=== PATIENT | female | born 1935 | race Caucasian/White ===

== ENCOUNTER 2017-10-08 22:00 | Observation (INO) | payer MEDICARE, OTHER ==
--- NOTE | 2017-10-08 22:33 | EDM.PDOC ---
ED HPI GENERAL MEDICAL PROBLEM - General Chief Complaint: Gastrointestinal Problem Stated Complaint: [facility] Time Seen by Provider: 10/08/17 22:05 Source of Information: Reports: Patient History Limitations: Reports: No Limitations - History of Present Illness INITIAL COMMENTS - FREE TEXT/NARRATIVE: This is an 82-year-old female. Tonight for supper she had a roast beef sandwich. As she was eating the sandwich she felt like she got some of it stuck in her esophagus and was no longer able to finish her sandwich. Normally when this happens she will vomit up the food and she'll be just fine. Tonight however she was not able to vomit up the food she continues to have esophageal spasms and regurgitating her sputum. She says she's never had it this bad before and she comes to the ER for evaluation. She denies any other acute changes or recent illnesses. Throat Pain Score (Numeric/FACES): 4 - Related Data Allergies Allergy/AdvReac Type Severity Reaction Status Date / Time lisinopril Allergy Swelling Verified 01/26/16 04:23 Home Meds: Home Meds Linagliptin [Tradjenta] 5 mg PO DAILY 01/26/16 [History] Oxybutynin [Oxybutynin ER] 5 mg PO DAILY 01/26/16 [History] Cranberry Fruit Concentrate [Azo Cranberry] 500 mg PO DAILY 10/08/17 [History] Hydrochlorothiazide 25 mg PO DAILY 10/08/17 [History] Oxybutynin 5 mg PO DAILY 10/08/17 [History] PARoxetine [Paxil] 10 mg PO DAILY 10/08/17 [History] Zolpidem Tartrate 5 mg PO BEDTIME PRN 10/08/17 [History] fentaNYL [Duragesic] 50 mcg TOP Q72H 10/08/17 [History] Past Medical History HEENT History: Reports: Cataract, Impaired Vision Other HEENT History: cataract sx both eyes 2009; wears glasses Cardiovascular History: Reports: Aneurysm, Hypertension Other Cardiovascular History: sx for aneurysm 2014 Gastrointestinal History: Reports: Chronic Constipation Genitourinary History: Reports: Other (See Below) Musculoskeletal History: Reports: Back Pain, Chronic Other Musculoskeletal History: severe sciatica bilateral Endocrine/Metabolic History: Reports: Diabetes, Type II Oncologic (Cancer) History: Reports: Breast Other Oncologic History: lumpectomy left breast 2003 - Past Surgical History GI Surgical History: Reports: Appendectomy, Cholecystectomy Other GI Surgeries/Procedures: appy many years ago; karen 2013 Female Surgical History: Reports: Hysterectomy Other Female Surgeries/Procedures: hysterectomy 1970 Other Neurological Surgeries/Procedures: requiring surgery for pinched sciatia nerve; scheduled 02/05/16 Oncologic Surgical History: Reports: Lumpectomy Social & Family History - Family History Family Medical History: Noncontributory Cardiac: Reports: Hypertension Musculoskeletal: Reports: Arthritis Endocrine/Metabolic: Reports: Diabetes, Type I Oncologic: Reports: Breast, Other (See Below) Other Oncologic Family History: uncle with throat cancer - Tobacco Use Smoking Status *Q: Never Smoker Years of Tobacco use: 20 Packs/Tins Daily: 0.5 Used Tobacco, but Quit: Yes Month/Year Tobacco Last Used: 06/1993 Second Hand Smoke Exposure: No - Caffeine Use Caffeine Use: Reports: Coffee - Recreational Drug Use Recreational Drug Use: No ED ROS GENERAL - Review of Systems Review Of Systems: See Below Constitutional: Reports: No Symptoms HEENT: Reports: Other (As per history of present illness) Respiratory: Reports: Shortness of Breath, Cough Cardiovascular: Reports: No Symptoms Endocrine: Reports: No Symptoms GI/Abdominal: Reports: Other (As per history of present illness) : Reports: No Symptoms Musculoskeletal: Reports: Other (Please see her past medical history) Skin: Reports: No Symptoms Neurological: Reports: Other (Hx of lumbar pinched nerve or sciatica) Psychiatric: Reports: No Symptoms Hematologic/Lymphatic: Reports: No Symptoms ED EXAM, GI/ABD - Physical Exam Exam: See Below Exam Limited By: No Limitations General Appearance: Alert, WD/WN, Mild Distress Eyes: Bilateral: Normal Appearance Ears: Normal External Exam Nose: Normal Inspection Throat/Mouth: Normal Inspection, Normal Lips, Normal Voice, No Airway Compromise , Other (Teeth are in fair repair) Head: Normocephalic Neck: Normal Inspection, Supple, Non-Tender Respiratory/Chest: No Respiratory Distress, Lungs Clear, Normal Breath Sounds Cardiovascular: Regular Rate, Rhythm, No Murmur GI/Abdominal Exam: Soft, Non-Tender, Other (Patient will regurgitate or sputum periodically. There are occasional food flecks in the sputum.) Back Exam: Decreased Range of Motion Extremities: Normal Inspection, Normal Range of Motion, No Pedal Edema Neurological: Alert, Oriented Psychiatric: Anxious Skin Exam: Warm, Dry Course - Vital Signs Last Recorded V/S: Last Vital Signs Temp 97.2 F 10/08/17 22:08 Pulse 71 10/08/17 22:08 Resp 20 10/08/17 22:08 BP 167/115 H 10/08/17 22:08 Pulse Ox 99 10/08/17 22:08 - Orders/Labs/Meds Orders: Active Orders 24 hr Category Date Time Status Patient Status [ADT] Routine ADT 10/09/17 00:04 Ordered Meds: Medications Discontinued Medications Generic Name Dose Route Start Last Admin Trade Name Elizabeth PRN Reason Stop Dose Admin Glucagon 1 mg 10/08/17 22:40 10/08/17 22:46 Glucagen IVPUSH 10/08/17 22:41 1 mg ONETIME ONE Administration - Re-Assessments/Exams Free Text/Narrative Re-Assessment/Exam: 10/08/17 23:37 Awaiting almost an hour and encouraged her to sip fluids she is still not able to swallow and keeps regurgitating her sputum. I spoke to Dr. Hand who will see the patient in the ER for further evaluation and treatment. Spoke to the patient about Dr. Hand coming to the ER to scope her and get rid of the foreign body in esophagus. 10/08/17 23:39 Dr. Hand will see the patient in the ER for further evaluation and treatment. Departure - Departure Time of Disposition: 00:06 Disposition: DC/Tfer to [facility] Condition: Fair Clinical Impression: Esophageal obstruction due to food impaction - Discharge Information ED Communication - ED Communication Date/Time Date: 10/08/17 Time Called: 23:39 - Discussed Case With (1) Discussed Case With (1): Admitting Provider Person/s Notified (1): Lucio Hand (He will take the patient for upper endoscopy) - My Orders Last 24 Hours: My Active Orders 10/09/17 00:04 Patient Status [ADT] Routine - Assessment/Plan Last 24 Hours: My Active Orders 10/09/17 00:04 Patient Status [ADT] Routine
[2017-10-08] MEDS ORDERED: Glucagon,Human Recombinant 1 MG Vial IVPUSH ONE (22:40)
--- NOTE | 2017-10-09 00:13 | PCM.PREANE ---
Preanesthetic Assessment - Anesthesia/Transfusion/Family Hx Anesthesia History: Prior Anesthesia Without Reaction Family History of Anesthesia Reaction: No Transfusion History: No Prior Transfusion(s) - Review of Systems General: Fatigue Pulmonary: No Symptoms Cardiovascular: No Symptoms Gastrointestinal: Abdominal Pain, Difficulty Swallowing, Nausea, Vomiting Neurological: Paresthesia (legs), Tingling (legs), Difficulty Walking Other: Reports: Diabetes, Throat Pain - Physical Assessment NPO Status Date: 10/08/17 NPO Status Time: 18:30 Pulse: 71 O2 Sat by Pulse Oximetry: 99 Respiratory Rate: 20 Blood Pressure: 167/115 Temperature: 36.2 C Vital Signs: Last Vital Signs Temp 36.2 C 10/08/17 22:08 Pulse 71 10/08/17 22:08 Resp 20 10/08/17 22:08 BP 167/115 H 10/08/17 22:08 Pulse Ox 99 10/08/17 22:08 Height: 1.65 m Weight: 77.111 kg ASA Class: 2E Mental Status: Alert & Oriented x3 Airway Class: Mallampati = 2 Dentition: Reports: Dentures, Caries Thyro-Mental Finger Breadths: 3 Mouth Opening Finger Breadths: 3 ROM/Head Extension: Full Lungs: Clear to Auscultation, Normal Respiratory Effort Cardiovascular: Regular Rate, Regular Rhythm, No Murmurs - Allergies Allergies/Adverse Reactions: Allergies Allergy/AdvReac Type Severity Reaction Status Date / Time lisinopril Allergy Swelling Verified 01/26/16 04:23 - Blood Blood Available: No Product(s) Available: None - Anesthesia Plan Pre-Op Medication Ordered: None - Acknowledgements Anesthesia Type Planned: MAC Pt an Appropriate Candidate for the Planned Anesthesia: Yes Alternatives and Risks of Anesthesia Discussed w Pt/Guardian: Yes Pt/Guardian Understands and Agrees with Anesthesia Plan: Yes PreAnesthesia Questionnaire HEENT History: Reports: Cataract, Impaired Vision Other HEENT History: cataract sx both eyes 2009; wears glasses Cardiovascular History: Reports: Aneurysm, Hypertension Other Cardiovascular History: sx for aneurysm 2014 Gastrointestinal History: Reports: Chronic Constipation Genitourinary History: Reports: Other (See Below) Musculoskeletal History: Reports: Back Pain, Chronic Other Musculoskeletal History: severe sciatica bilateral Endocrine/Metabolic History: Reports: Diabetes, Type II Oncologic (Cancer) History: Reports: Breast Other Oncologic History: lumpectomy left breast 2004 - Past Surgical History GI Surgical History: Reports: Appendectomy, Cholecystectomy Other GI Surgeries/Procedures: appy many years ago; karen 2014 Female Surgical History: Reports: Hysterectomy Other Female Surgeries/Procedures: hysterectomy 1971 Other Neurological Surgeries/Procedures: requiring surgery for pinched sciatia nerve; scheduled 02/05/16 Oncologic Surgical History: Reports: Lumpectomy - SUBSTANCE USE Smoking Status *Q: Never Smoker Tobacco Use Within Last Twelve Months: No Second Hand Smoke Exposure: No Days Per Week of Alcohol Use: 0 Number of Drinks Per Day: 0 Total Drinks Per Week: 0 Recreational Drug Use History: No - HOME MEDS Home Medications: Home Meds Linagliptin [Tradjenta] 5 mg PO DAILY 01/26/16 [History] Oxybutynin [Oxybutynin ER] 5 mg PO DAILY 01/26/16 [History] Cranberry Fruit Concentrate [Azo Cranberry] 500 mg PO DAILY 10/08/17 [History] Hydrochlorothiazide 25 mg PO DAILY 10/08/17 [History] Oxybutynin 5 mg PO DAILY 10/08/17 [History] PARoxetine [Paxil] 10 mg PO DAILY 10/08/17 [History] Zolpidem Tartrate 5 mg PO BEDTIME PRN 10/08/17 [History] fentaNYL [Duragesic] 50 mcg TOP Q72H 10/08/17 [History] - CURRENT (IN HOUSE) MEDS Current Meds: Current Medications Discontinued Medications Glucagon (Glucagen) 1 mg IVPUSH ONETIME ONE Stop: 10/08/17 22:41 Last Admin: 10/08/17 22:46 Dose: 1 mg
[2017-10-09] MEDS ORDERED: Ondansetron 4 MG/2 ML SDV ONE ×2 (00:25→04:37)
[2017-10-09] MEDS ORDERED: Propofol 200 MG/20 ML SDV ONE ×2 (00:25→00:51)
[2017-10-09] MEDS ORDERED: Lidocaine 1% 4 ML ONE (00:26)
[2017-10-09] MEDS ORDERED: Midazolam 1 MG/ML 2 ML SDV ONE (00:26)
[2017-10-09] MEDS ORDERED: fentaNYL 100 MCG/2 ML SDV ONE (00:46)
[2017-10-09] MEDS ORDERED: Phenylephrine/Normal Saline 100 MCG/ML 10 ML Syringe ONE (01:15)
[2017-10-09] MEDS ORDERED: Glucagon,Human Recombinant 1 MG Vial ONE (01:19)
[2017-10-09] MEDS ORDERED: Lactated Ringers 1,000 ML ONE (01:40)
--- NOTE | 2017-10-09 01:56 | PCM.OPNOTE ---
- General Post-Op/Procedure Note Date of Surgery/Procedure: 10/09/17 Operative Procedure(s): removal of foreign via endoscope and use of over tube Pre Op Diagnosis: obstructed esophagus Post-Op Diagnosis: Same Anesthesia Technique: General ET Tube Primary Surgeon: Lucio Hand EBL in mLs: 0 Complications: None Condition: Good
[2017-10-09] MEDS ORDERED: Lactated Ringers 1,000 ML IV SCH (02:00)
[2017-10-09] MEDS ORDERED: fentaNYL 250 MCG/5 ML SDV IVPUSH PRN (02:07)
--- NOTE | 2017-10-09 02:09 | PCM.POSTAN ---
POST ANESTHESIA ASSESSMENT - MENTAL STATUS Mental Status: Alert, Oriented - VITAL SIGNS Pulse Rate: 63 SaO2: 90 Resp Rate: 16 Blood Pressure: 129/63 Temperature: 36.6 C - RESPIRATORY Respiratory Status: Respiratory Rate WNL, Airway Patent, O2 Saturation Stable, Supplemental Oxygen - CARDIOVASCULAR CV Status: Pulse Rate WNL, Blood Pressure Stable - GASTROINTESTINAL GI Status: No Symptoms - PAIN Pain Score: 0 - POST OP HYDRATION Hydration Status: Adequate & Stable - OBSERVATIONS Free Text/Narrative:: no anesthesia complications noted
[2017-10-09] MEDS ORDERED: fentaNYL 100 MCG/2 ML SDV IVPUSH PRN (02:15)
[2017-10-09] MEDS ORDERED: Pantoprazole 40 MG Vial IVPUSH ONE (02:15)
[2017-10-09] MEDS: Ondansetron 4 MG/2 ML SDV IVPUSH ONE ×2 (03:28→04:38)
[2017-10-09] MEDS ORDERED: Hydrochlorothiazide 25 MG Tab PO SCH (09:00)
--- NOTE | 2017-10-09 10:28 | PCM.PN ---
- General Info Date of Service: 10/09/17 - Patient Data Vitals - Most Recent: Last Vital Signs Temp 98.6 F 10/09/17 08:05 Pulse 53 L 10/09/17 08:05 Resp 16 10/09/17 03:41 BP 140/65 10/09/17 08:05 Pulse Ox 98 10/09/17 08:05 Weight - Most Recent: 73.799 kg I&O - Last 24 Hours: Intake & Output 10/08/17 10/09/17 10/09/17 23:59 07:59 15:59 Intake Total 200 Output Total 200 Balance 0 Lab Results Last 24 Hours: Laboratory Results - last 24 hr 10/09/17 Range/Units 02:08 POC Glucose 231 H (83-110) mg/dL Med Orders - Current: Current Medications Hydrochlorothiazide (Hydrochlorothiazide) 12.5 mg PO DAILY [facility] Lactated Ringer's (Ringers, Lactated) 1,000 mls @ 50 mls/hr IV ASDIRECTED [facility] Last Admin: 10/09/17 03:58 Dose: 50 mls/hr Pantoprazole Sodium (Protonix Iv) 40 mg IVPUSH DAILY [facility] Paroxetine HCl (Paxil) 10 mg PO DAILY [facility] Last Admin: 10/09/17 09:04 Dose: 10 mg Discontinued Medications Fentanyl (Sublimaze) Confirm Administered Dose 100 mcg .ROUTE .STK-MED ONE Stop: 10/09/17 00:47 Fentanyl (Sublimaze) 50 mcg IVPUSH Q5M PRN PRN Reason: PAIN Glucagon (Glucagen) 1 mg IVPUSH ONETIME ONE Stop: 10/08/17 22:41 Last Admin: 10/08/17 22:46 Dose: 1 mg Glucagon (Glucagen) Confirm Administered Dose 1 mg .ROUTE .STK-MED ONE Stop: 10/09/17 01:20 Hydrochlorothiazide (Hydrochlorothiazide) 25 mg PO DAILY [facility] Lidocaine HCl (Xylocaine-Mpf 1%) Confirm Administered Dose 4 mls @ as directed .ROUTE .STK-MED ONE Stop: 10/09/17 00:27 Lactated Ringer's (Ringers, Lactated) Confirm Administered Dose 1,000 mls @ as directed .ROUTE .STK-MED ONE Stop: 10/09/17 01:41 Midazolam HCl (Versed 1 Mg/Ml) Confirm Administered Dose 2 mg .ROUTE .STK-MED ONE Stop: 10/09/17 00:27 Ondansetron HCl (Zofran) Confirm Administered Dose 4 mg .ROUTE .STK-MED ONE Stop: 10/09/17 00:26 Ondansetron HCl (Zofran) 4 mg IVPUSH ONETIME ONE Stop: 10/09/17 02:08 Last Admin: 10/09/17 04:38 Dose: 4 mg Ondansetron HCl (Zofran) Confirm Administered Dose 4 mg .ROUTE .STK-MED ONE Stop: 10/09/17 04:38 Last Admin: 10/09/17 08:15 Dose: Not Given Pantoprazole Sodium (Protonix Iv) 40 mg IVPUSH ONETIME ONE Stop: 10/09/17 02:16 Last Admin: 10/09/17 03:58 Dose: 40 mg Phenylephrine HCl (Phenylephrine In Ns 100 Mcg/Ml) Confirm Administered Dose 1 mg .ROUTE .STK-MED ONE Stop: 10/09/17 01:16 Propofol (Diprivan 20 Ml) Confirm Administered Dose 200 mg .ROUTE .STK-MED ONE Stop: 10/09/17 00:26 Propofol (Diprivan 20 Ml) Confirm Administered Dose 200 mg .ROUTE .STK-MED ONE Stop: 10/09/17 00:52 - Problem List Review Problem List Initiated/Reviewed/Updated: Yes - My Orders Last 24 Hours: My Active Orders 10/09/17 00:08 Schedule Procedure [COMM] Stat 10/09/17 01:57 Ambulate [RC] QID Turn, Cough, Deep Breathe [RC] .PRN 10/09/17 02:00 Lactated Ringers [Ringers, Lactated] 1,000 ml IV ASDIRECTED 10/09/17 04:14 Resuscitation Status Routine 10/09/17 09:00 METH-RESIST S.AUR,MRSA BY PCR [MOLEC] Routine PARoxetine [Paxil] 10 mg PO DAILY 10/09/17 Breakfast Clear Liquid Diet [DIET] 10/10/17 09:00 Hydrochlorothiazide 12.5 mg PO DAILY Pantoprazole [ProTONIX IV] 40 mg IVPUSH DAILY - Plan Plan:: discharge dictated ALE
[2017-10-09 10:33] VITALS: BP 145/66
--- NOTE | 2017-10-09 11:00 | PCM48HPAN ---
Post Anesthesia Note - EVALUATION WITHIN 48HRS OF ANESTHETIC Vital Signs in Normal Range: Yes Patient Participated in Evaluation: Yes Respiratory Function Stable: Yes Airway Patent: Yes Cardiovascular Function Stable: Yes Hydration Status Stable: Yes Pain Control Satisfactory: Yes (throat is a little sore) Nausea and Vomiting Control Satisfactory: Yes Mental Status Recovered: Yes Pulse Rate: 50 Resp Rate: 16 Temperature: 99.0 F Blood Pressure: 145/66
--- NOTE | 2017-10-09 19:22 | DISCH ---
ADMISSION DATE: 10/09/2017 DISCHARGE DATE: 10/09/2017 This is an 82-year-old who came into the emergency room with inability to swallow due to having an obstruction of the esophagus due to eating a turkey sandwich. The patient had had this problem before, and she had been on Prilosec but 2 weeks ago decided to discontinue it on her own. PHYSICAL EXAMINATION: GENERAL: At time admission reveals alert and cooperative female. EYES, EARS, NOSE, AND THROAT: Unremarkable. NECK: Supple. LUNGS: Clear. HEART: Tones regular rate. ABDOMEN: Soft. EXTREMITIES: Upper and lower extremities, no angulation deformities. HOSPITAL COURSE: The patient was seen in the emergency room and transported urgently to the endoscopy room, where under general anesthetic, the bolus was carefully removed using an overtube. She was found to have a very narrow GE junction with scarring and dilatation of the distal esophagus. The area was wide enough to allow the scope to enter. It was elected at this time because of the difficulty of the procedure to keep her overnight for observation. The patient did well. She is up and ambulating. Vital signs stable. Eating, saturations normal. Free of any pain. The patient was informed of the results of her tests. We recommend that she return to the use of Prilosec in addition to other medications and use it twice a day. See me in the clinic in a week where we will do upper GI, esophagram, and then EGD with biopsy and dilatation if necessary, and we will recommend a pureed diet until that time. Discussed this with the patient's daughter. They understand and consent. DISCHARGE DIAGNOSES: 1. Esophageal obstruction, status post disimpaction with upper gastrointestinal endoscopy. 2. Distal esophageal stricture, secondary to esophageal reflux, chronic. 3. Medical problems as detailed above. 4. Diet: Pureed diet. No work. Medications as detailed. Follow up in the clinic. CONDITION ON DISCHARGE: Improved. FINAL DIAGNOSIS: DISCHARGE MEDICATIONS: DIET: ACTIVITY: FOLLOW-UP: MMPARDEEP /[id number]
[2017-10-10] MEDS ORDERED: Pantoprazole 40 MG Vial IVPUSH SCH (09:00)
[2017-10-10] MEDS ORDERED: Hydrochlorothiazide 12.5 MG Cap PO SCH (09:00)
--- NOTE | 2017-10-11 08:55 | OR ---
DATE OF OPERATION: 10/09/2017 SURGEON: Lucio Hand MD PREOPERATIVE DIAGNOSIS: Obstructed esophagus secondary to a sandwich. POSTOPERATIVE DIAGNOSIS: Obstructed esophagus secondary to a sandwich. FINDINGS: Dilated esophagus mainly in the distal part with inflammation at the GE junction secondary with mild scarring. However, the endoscope was able to pass through into the stomach after removal of the foreign body. This was done using an over tube to facilitate the procedure. Done under general anesthetic. Cause of the obstruction appears to be esophagitis with reflux and scarring. DESCRIPTION OF PROCEDURE: The patient was taken to the endoscopy room, placed in a supine position, given a general anesthetic, and intubated. Upper GI endoscopy was then performed after a bite block was inserted and the patient placed in the left side. This was advanced past the cricopharyngeus down into the esophagus where a very friable soupy mass was encountered. After some trial, there was found that the snare with a vascular net seemed to work the best where small amounts were pulled out at time. This was facilitated by placing an [place].S. endoscopy over tube and this allowed back pressure, so we could visualize the areas that needed removal. The scope was passed a number of times through the over tube and the material was removed until it was completely gone and the distal esophagus was indeed dilated and there was a small opening into the stomach, although it admitted the endoscope without too much coaching. Scope was then placed into the stomach, did not see any gross pathology, and the scope was then slowly withdrawn checking carefully the wall of the esophagus for any trauma as the over tube was removed and there was none. The patient tolerated the procedure and sent to recovery room in a stable condition, will be observed for a short time here in the hospital. OPERATION PERFORMED: ANESTHESIA: ESTIMATED BLOOD LOSS: MMODAL /[id number]
--- NOTE | 2017-10-11 10:10 | HP ---
DATE OF ADMISSION: 10/09/2017 HISTORY OF PRESENT ILLNESS: An 82-year-old about dinnertime had roast beef sandwich and she felt like she got something stuck in her esophagus, unable to finish the sandwich and then came into night where she was documented to have something stuck in esophagus and I was called to see her. She has this happen now and then and usually works it out with water brings up the food. She about 6 months ago had this problem resolved and about 2 weeks ago, she has been on Prilosec, decided she has been taking too much medications and stopped it. She has been using Tums. States that she does not have any heartburn. CURRENT MEDICATIONS: Reviewed per medication reconciliation form. PAST MEDICAL HISTORY: Chronic constipation, back pain, sciatica, diabetes type 2, and esophageal reflux. FAMILY HISTORY: Has some hypertension in the family. SOCIAL HISTORY: Never smoked. No use of drugs. ALLERGIES: None known. REVIEW OF SYSTEMS: Does have some vague chest pain. No shortness of breath, cough, hoarseness, wheezing, fainting, weakness, numbness, or convulsions. PHYSICAL EXAMINATION: GENERAL: The patient in moderate distress. VITAL SIGNS: Temperature 97, pulse 71, respirations 20, blood pressure 167/50. HEENT: Eyes; sclerae white. Extraocular muscle motion normal. Oral cavity; healthy mucous membrane with mouth and tongue. NECK: Supple. No nodes. No thyromegaly. Trachea midline. LUNGS: Clear. No rales, rhonchi, fremitus, dullness. HEART: Heart tones regular rate. No S3, S4, or jugular venous distention. ABDOMEN: Soft. No tenderness, guarding, rebound, organomegaly. EXTREMITIES: Upper and lower extremities, no angulation deformities. SKIN: Warm and dry. NEUROLOGIC: No sensorineural deficit. Cranial nerves 3 through 12 intact. PSYCHIATRIC: Normal. ASSESSMENT: Obstructed esophagus of meat. PLAN: For upper GI endoscopy. Discussed this with the patient risks and complications. She understands and consents. MMODAL /[id number]
== END 2017-10-09 11:20 | disposition home or self-care (01) ==
LOC: JD.ED 22:00 → JD.SDS 10-09 00:04 → JD.MS 10-09 02:00
PROVIDERS: ADMIT Surgery; ATTEND Surgery
DX: T18.128A Food in esophagus causing other injury, initial encounter (principal); I10 Essential (primary) hypertension; K59.09 Other constipation; M54.32 Sciatica, left side; M54.31 Sciatica, right side; E11.9 Type 2 diabetes mellitus without complications; Z79.899 Other long term (current) drug therapy; Z88.8 Allergy status to other drugs, medicaments and biological substances; Z90.49 Acquired absence of other specified parts of digestive tract; Z90.710 Acquired absence of both cervix and uterus; Z98.890 Other specified postprocedural states; Z79.84 Long term (current) use of oral hypoglycemic drugs
CPT/HCPCS: 43247; 43499; 82962; 87641; 96374; 99285; A9270; C9113; J1610; J2001; J2250; J2405; J3010; J7120; G0378; J2704

== ENCOUNTER 2017-10-22 08:44 | Day surgery (SDC) | payer MEDICARE, OTHER ==
[~2017-10-22 08:44] MED LIST: Lactated Ringers 1,000 ML IV SCH; Lidocaine 1%/Sod Bicarbonate in NS 8.4% 1 ML Syringe IDERM PRN; Sodium Chloride 0.9% 10 ML Syringe FLUSH PRN
--- NOTE | 2017-10-22 09:21 | PCM.PREANE ---
Preanesthetic Assessment - Procedure Proposed Procedure: egd with dilation - Anesthesia/Transfusion/Family Hx Anesthesia History: Prior Anesthesia Without Reaction Family History of Anesthesia Reaction: No Transfusion History: No Prior Transfusion(s) - Review of Systems General: Weakness (from back) Pulmonary: No Symptoms, Cough (in am-sinus drainage) Cardiovascular: No Symptoms Gastrointestinal: No Symptoms Neurological: No Symptoms Other: Reports: Diabetes, Sinus Problem (post nasal driip), Depression - Physical Assessment NPO Status Date: 10/21/17 NPO Status Time: 20:00 Pulse: 57 O2 Sat by Pulse Oximetry: 96 Respiratory Rate: 16 Blood Pressure: 167/93 Temperature: 97.5 F Height: 5 ft 7 in Weight: 72.5 kg ASA Class: 3 Mental Status: Alert & Oriented x3 Airway Class: Mallampati = 1 Dentition: Reports: Partial (top) Thyro-Mental Finger Breadths: 3 Mouth Opening Finger Breadths: 3 ROM/Head Extension: Full Lungs: Clear to Auscultation, Normal Respiratory Effort Cardiovascular: Regular Rate, Regular Rhythm - Lab Values: fbs this am 105 - Allergies Allergies/Adverse Reactions: Allergies Allergy/AdvReac Type Severity Reaction Status Date / Time lisinopril Allergy Rash Verified 10/21/17 12:21 - Blood Blood Available: No - Acknowledgements Anesthesia Type Planned: MAC Pt an Appropriate Candidate for the Planned Anesthesia: Yes Alternatives and Risks of Anesthesia Discussed w Pt/Guardian: Yes Pt/Guardian Understands and Agrees with Anesthesia Plan: Yes PreAnesthesia Questionnaire HEENT History: Reports: Cataract, Impaired Vision Other HEENT History: cataract sx both eyes 2009; wears glasses Cardiovascular History: Reports: Aneurysm, Hypertension Other Cardiovascular History: sx for aneurysm 2014 Respiratory History: Reports: None Gastrointestinal History: Reports: Chronic Constipation Genitourinary History: Reports: Chronic Renal Insuffiency, Other (See Below) Other Genitourinary History: Over active pladder APPEALS ANALYST History: Reports: None Musculoskeletal History: Reports: Back Pain, Chronic Other Musculoskeletal History: severe sciatica bilateral Psychiatric History: Reports: Depression Endocrine/Metabolic History: Reports: Diabetes, Type II Hematologic History: Reports: None Immunologic History: Reports: None Oncologic (Cancer) History: Reports: Breast Other Oncologic History: lumpectomy left breast 2003 Dermatologic History: Reports: None - Past Surgical History Head Surgeries/Procedures: Reports: None HEENT Surgical History: Reports: Cataract Surgery Cardiovascular Surgical History: Reports: AAA Repair Respiratory Surgical History: Reports: None GI Surgical History: Reports: Appendectomy, Cholecystectomy Other GI Surgeries/Procedures: appy many years ago; karen 2013 Female Surgical History: Reports: Hysterectomy Other Female Surgeries/Procedures: hysterectomy 1971 Neurological Surgical History: Reports: Laminectomy, Lumbar Spine Other Neurological Surgeries/Procedures: requiring surgery for pinched sciatia nerve; scheduled 02/05/16 Oncologic Surgical History: Reports: Lumpectomy Dermatological Surgical History: Reports: None - SUBSTANCE USE Smoking Status *Q: Former Smoker (quit 30 years ago) Tobacco Use Within Last Twelve Months: No Second Hand Smoke Exposure: No Days Per Week of Alcohol Use: 0 Recreational Drug Use History: No - HOME MEDS Home Medications: Home Meds Linagliptin [Tradjenta] 5 mg PO DAILY 01/26/16 [History] Oxybutynin [Oxybutynin ER] 5 mg PO DAILY 01/26/16 [History] Cranberry Fruit Concentrate [Azo Cranberry] 500 mg PO DAILY 10/08/17 [History] PARoxetine [Paxil] 10 mg PO DAILY 10/08/17 [History] Zolpidem Tartrate 5 mg PO BEDTIME PRN 10/08/17 [History] fentaNYL [Duragesic] 50 mcg TOP Q72H 10/08/17 [History] Hydrochlorothiazide 12.5 mg PO DAILY 10/09/17 [History] Omeprazole Magnesium [Prilosec Otc] 20 mg PO BID #14 tablet. 10/09/17 [Rx] Cholecalciferol (Vitamin D3) [Vitamin D3] 5,000 unit PO DAILY 10/21/17 [History] Naproxen Sodium [Aleve] 220 mg PO BID PRN 10/21/17 [History] - CURRENT (IN HOUSE) MEDS Current Meds: Current Medications Lactated Ringer's (Ringers, Lactated) 1,000 mls @ 125 mls/hr IV ASDIRECTED ANA LAURA Stop: 10/22/17 23:00 Lidocaine/Sodium Bicarbonate (Buffered Lidocaine 1% In Ns 8.4%) 0.25 ml IDERM ONETIME PRN PRN Reason: Prior to IV Start Stop: 10/22/17 18:00 Sodium Chloride (Saline Flush) 10 ml FLUSH ASDIRECTED PRN PRN Reason: Keep Vein Open Stop: 10/22/17 18:00
[2017-10-22] MEDS ORDERED: Lidocaine 1% 4 ML ONE (09:46)
[2017-10-22] MEDS ORDERED: Propofol 200 MG/20 ML SDV ONE (09:46)
[2017-10-22] MEDS ORDERED: Midazolam 1 MG/ML 2 ML SDV ONE (10:34)
--- NOTE | 2017-10-22 10:56 | PCM.OPNOTE ---
- General Post-Op/Procedure Note Date of Surgery/Procedure: 10/22/17 Operative Procedure(s): EGD with bx of GE jct and balloon dilitaton of the GE jct to 54 F Pre Op Diagnosis: dysphagia Post-Op Diagnosis: Same Anesthesia Technique: MAC Primary Surgeon: Lucio Hand EBL in mLs: 0 Complications: None Condition: Good
[2017-10-22 13:25] VITALS: BP 170/85
--- NOTE | 2017-10-25 07:55 | OR ---
DATE OF OPERATION: 10/22/2017 SURGEON: Lucio Hand MD PREOPERATIVE DIAGNOSIS: Dysphagia, suggestive of achalasia. POSTOPERATIVE DIAGNOSIS: Dysphagia suggestive of achalasia. OPERATION PERFORMED: Esophagogastroduodenoscopy biopsy, balloon dilatation to 54-Nepalese done under IV sedation. FINDINGS: Slight dilatation of the distal esophagus with difficulty, with the failure of the distal esophagus to open up. The GE junction was located at 30 cm. There was a large hiatal hernia with half of the stomach above the diaphragm. There was no acute pathology in the stomach or the duodenum up to the second portion. The balance of the esophagus shows a lot of krista waves in the upper esophagus. DESCRIPTION OF PROCEDURE: The patient was taken to the endoscopy room, connected to monitoring equipment, given IV sedation. Bite-block was inserted. The patient was placed in left side and video Olympus gastroscope was placed in the posterior oropharynx. Under direct vision threaded past the cricopharyngeus, down the esophagus into the stomach. It was then advanced to the pylorus second portion of the duodenum and slowly withdrawn. Normal second portion of the duodenum, duodenal bulb, and pyloric channel was noted. Antrum, body, and cardia of the stomach was unremarkable. J-maneuver showed indentation of the diaphragm on the midportion of the stomach with about half of the stomach above the diaphragm. The scope withdrawn to the hiatal hernia, pouch did not show any acute disease. The scope was withdrawn to the GE junction, located at 30 cm, and this was then dilated up to 54-Nepalese with a balloon dilation. This was also biopsied. The rest of the esophagus was viewed, the scope withdrawn showing a lot of contractions. The patient tolerated the procedure, sent to recovery room in a stable condition, will be followed up in the clinic in 1 week. ANESTHESIA: ESTIMATED BLOOD LOSS: MMODAL /[id number]
== END 2017-10-22 11:50 | disposition home or self-care (01) ==
LOC: JD.SDS 08:44
PROVIDERS: ATTEND Surgery
DX: K22.2 Esophageal obstruction (principal); K44.9 Diaphragmatic hernia without obstruction or gangrene; K22.8 Other specified diseases of esophagus; K21.9 Gastro-esophageal reflux disease without esophagitis; I12.9 Hypertensive chronic kidney disease with stage 1 through stage 4 chronic kidney disease, or unspecified chronic kidney disease; E11.22 Type 2 diabetes mellitus with diabetic chronic kidney disease; N18.9 Chronic kidney disease, unspecified; F32.9 Major depressive disorder, single episode, unspecified; Z87.891 Personal history of nicotine dependence; Z79.84 Long term (current) use of oral hypoglycemic drugs; Z79.899 Other long term (current) drug therapy; Z88.8 Allergy status to other drugs, medicaments and biological substances
CPT/HCPCS: 82962; J2001; J2250; J2704; J7120

== ENCOUNTER 2020-04-29 12:55 | Emergency (ER) | payer MEDICARE, OTHER ==
[2020-04-29] MEDS ORDERED: Sodium Chloride 0.9% 10 ML Syringe FLUSH PRN (13:35)
--- NOTE | 2020-04-29 14:00 | EDM.PDOC ---
ED HPI GENERAL MEDICAL PROBLEM - General Chief Complaint: Head Injury Stated Complaint: [facility] Time Seen by Provider: 04/29/20 12:58 Source of Information: Reports: Patient, EMS History Limitations: Reports: No Limitations - History of Present Illness INITIAL COMMENTS - FREE TEXT/NARRATIVE: The patient presents by [facility] for a fall. She lives at an as sisted living place here in town called [facility]. She tripped and fell and hit her head on the right side. She has a large hematoma to the right parietal region. She does not think she had any LOC. She has no headache. She did have some left hip pain when EMS picked her up but that is gone now. She has no numbness or weakness. She does not take blood thinners except for a baby aspirin. She has no numbness or weakness. Onset: Sudden Duration: Minutes: Location: Reports: Head Quality: Reports: Sharp Severity: Moderate Improves with: Reports: None Worsens with: Reports: None Associated Symptoms: Reports: Headaches. Denies: Chest Pain, Cough, Fever/Chills, Nausea/Vomiting, Shortness of Breath Head Pain Score (Numeric/FACES): 3 - Related Data Allergies Allergy/AdvReac Type Severity Reaction Status Date / Time lisinopril Allergy Rash Verified 04/29/20 13:06 Home Meds: Home Meds Linagliptin [Tradjenta] 5 mg PO DAILY 01/26/16 [History] Cranberry Fruit Concentrate [Azo Cranberry] 500 mg PO DAILY 10/08/17 [History] Zolpidem Tartrate 5 mg PO BEDTIME PRN 10/08/17 [History] fentaNYL [Duragesic] 50 mcg TOP Q72H 10/08/17 [History] Cholecalciferol (Vitamin D3) [Vitamin D3] 5,000 unit PO DAILY 10/21/17 [History] Aspirin [Kathia Chewable Aspirin] 81 mg PO DAILY 01/13/19 [History] Gabapentin [Neurontin] 300 mg PO BID 01/13/19 [History] Pantoprazole Sodium [Protonix] 40 mg PO DAILY 01/13/19 [History] Sertraline [Zoloft] 75 mg PO DAILY 01/13/19 [History] Losartan [Cozaar] 50 mg PO DAILY 04/29/20 [History] Past Medical History HEENT History: Reports: Cataract, Impaired Vision Other HEENT History: cataract sx both eyes 2009; wears glasses Cardiovascular History: Reports: Aneurysm, Hypertension Other Cardiovascular History: sx for aneurysm 2014 Respiratory History: Reports: Pneumonia, Recurrent Gastrointestinal History: Reports: Chronic Constipation, GERD, Hiatal Hernia Genitourinary History: Reports: Chronic Renal Insuffiency, UTI, Recurrent, Other (See Below) Other Genitourinary History: Over active pladder MEDICAL ADMINISTRATIVE SPECIALIST History: Reports: None Musculoskeletal History: Reports: Back Pain, Chronic Other Musculoskeletal History: severe sciatica bilateral Neurological History: Psychiatric History: Reports: Depression Endocrine/Metabolic History: Reports: Diabetes, Type II Hematologic History: Reports: None Immunologic History: Reports: None Oncologic (Cancer) History: Reports: Breast Other Oncologic History: lumpectomy left breast 2003 Dermatologic History: Reports: None - Infectious Disease History Infectious Disease History: Reports: Chicken Pox, Measles, Mumps - Past Surgical History HEENT Surgical History: Reports: Cataract Surgery Cardiovascular Surgical History: Reports: AAA Repair GI Surgical History: Reports: Appendectomy, Cholecystectomy, Colonoscopy, EGD Other GI Surgeries/Procedures: appy many years ago; karen 2013 Female Surgical History: Reports: Hysterectomy Other Female Surgeries/Procedures: hysterectomy 1970 Neurological Surgical History: Reports: Laminectomy, Lumbar Spine Other Neurological Surgeries/Procedures: requiring surgery for pinched sciatia nerve; scheduled 02/05/16 Oncologic Surgical History: Reports: Lumpectomy Social & Family History - Family History Family Medical History: No Pertinent Family History Cardiac: Reports: Hypertension Musculoskeletal: Reports: Arthritis Endocrine/Metabolic: Reports: Diabetes, Type I Oncologic: Reports: Breast, Other (See Below) Other Oncologic Family History: uncle with throat cancer - Tobacco Use Tobacco Use Status *Q: Former Tobacco User Used Tobacco, but Quit: Yes Month/Year Tobacco Last Used: 1999 - Caffeine Use Caffeine Use: Reports: Coffee Other Caffeine Use: 1 cup in am - Recreational Drug Use Recreational Drug Use: No ED ROS GENERAL - Review of Systems Review Of Systems: See Below Constitutional: Reports: No Symptoms HEENT: Reports: No Symptoms Respiratory: Reports: No Symptoms Cardiovascular: Reports: No Symptoms Endocrine: Reports: No Symptoms GI/Abdominal: Reports: No Symptoms : Reports: No Symptoms Neurological: Reports: Headache. Denies: Numbness, Weakness ED EXAM, HEAD INJURY - Physical Exam Exam: See Below Exam Limited By: No Limitations General Appearance: Alert, No Apparent Distress Head: Other (Large area of edema with abrasion to the right parietal region) Eyes: Bilateral Eye: EOMI Ears: Normal External Exam Nose: Normal Inspection Neck: Non-Tender, Normal Alignment, Normal Inspection Respiratory: No Respiratory Distress, Lungs Clear, Normal Breath Sounds Cardiovascular: Regular Rate, Rhythm, No Edema, No Murmur GI/Abdominal Exam: Soft, Non-Tender, No Organomegaly, No Mass Back Exam: Normal Inspection Extremities: Normal Inspection Neurologic: No Motor/Sensory Deficits, Alert, Oriented x 3 Course - Vital Signs Last Recorded V/S: Last Vital Signs Temp 98.1 F 04/29/20 13:00 Pulse 59 L 04/29/20 13:00 Resp 17 04/29/20 13:00 BP 196/100 H 04/29/20 13:00 Pulse Ox 93 L 04/29/20 13:00 - Orders/Labs/Meds Orders: Active Orders 24 hr Category Date Time Status Cardiac Monitoring [RC] . DIRECTED Care 04/29/20 13:35 Active Peripheral IV Care [RC] . DIRECTED Care 04/29/20 13:36 Active CBC WITH AUTO DIFF [HEME] Stat Lab 04/29/20 13:35 Ordered COMPREHENSIVE METABOLIC PN,CMP [CHEM] Stat Lab 04/29/20 13:35 Ordered CORONAVIRUS COVID-19 KEVIN [MOLEC] Stat Lab 04/29/20 13:42 Received INR,PT,PROTHROMBIN TIME [COAG] Stat Lab 04/29/20 13:35 Ordered PTT,PARTIAL THROMBOPLSTIN TIME [COAG] Stat Lab 04/29/20 13:35 Ordered Sodium Chloride 0.9% [Saline Flush] Med 04/29/20 13:35 Active 10 ml FLUSH ASDIRECTED PRN Peripheral IV Insertion Adult [OM.PC] Stat Oth 04/29/20 13:35 Ordered Medication Orders Sodium Chloride (Saline Flush) 10 ml FLUSH ASDIRECTED PRN PRN Reason: Keep Vein Open Last Admin: 04/29/20 13:51 Dose: 10 ml Documented by: LENO Meds: Medications Generic Name Dose Route Start Last Admin Trade Name Freq PRN Reason Stop Dose Admin Sodium Chloride 10 ml 04/29/20 13:35 04/29/20 13:51 Saline Flush FLUSH 10 ml ASDIRECTED PRN Administration Keep Vein Open - Re-Assessments/Exams Free Text/Narrative Re-Assessment/Exam: 04/29/20 14:[address] of her head. The CT does shows a subarachnoid and subdural hematoma. I have ordered a COVID 19 test and labs. 04/29/20 14:12 I called [facility] in [place] and talked with the neurosurgeon Dr Pérez and he said this is nonsurgical but she will need to be observed. I talked with the hospitalist Dr Schwartz and he agreed to the transfer. Departure - Departure Time of Disposition: 14:15 Disposition: DC/Tfer to [facility] Condition: Serious Clinical Impression: Subdural hematoma, Subarachnoid hemorrhage Fall Qualifiers: Encounter type: initial encounter Qualified Code(s): W19.XXXA - Unspecified fall, initial encounter - Discharge Information Referrals: Ugo Juan MD [Primary Care Provider] - Forms: ED Department Discharge Sepsis Event Note (ED) - Evaluation Sepsis Screening Result: No Definite Risk - Focused Exam Vital Signs: Vital Signs Temp Pulse Resp BP Pulse Ox 04/29/20 13:00 98.1 F 59 L 17 196/100 H 93 L - My Orders Last 24 Hours: My Active Orders 04/29/20 13:35 Cardiac Monitoring [RC] . DIRECTED CBC WITH AUTO DIFF [HEME] Stat COMPREHENSIVE METABOLIC PN,CMP [CHEM] Stat INR,PT,PROTHROMBIN TIME [COAG] Stat PTT,PARTIAL THROMBOPLSTIN TIME [COAG] Stat Sodium Chloride 0.9% [Saline Flush] 10 ml FLUSH ASDIRECTED PRN Peripheral IV Insertion Adult [OM.PC] Stat 04/29/20 13:36 Peripheral IV Care [RC] . DIRECTED 04/29/20 13:42 CORONAVIRUS COVID-19 KEVIN [MOLEC] Stat - Assessment/Plan Last 24 Hours: My Active Orders 04/29/20 13:35 Cardiac Monitoring [RC] . DIRECTED CBC WITH AUTO DIFF [HEME] Stat COMPREHENSIVE METABOLIC PN,CMP [CHEM] Stat INR,PT,PROTHROMBIN TIME [COAG] Stat PTT,PARTIAL THROMBOPLSTIN TIME [COAG] Stat Sodium Chloride 0.9% [Saline Flush] 10 ml FLUSH ASDIRECTED PRN Peripheral IV Insertion Adult [OM.PC] Stat 04/29/20 13:36 Peripheral IV Care [RC] . DIRECTED 04/29/20 13:42 CORONAVIRUS COVID-19 KEVIN [MOLEC] Stat
--- NOTE | 2020-04-29 14:09 | CT ---
PROCEDURE INFORMATION: Exam: CT Head Without Contrast Exam date and time: 04/29/2020 1:04 PM Age: 84 years old Clinical indication: Injury or trauma; Fall; Blunt trauma (contusions or hematomas); Consciousness not specified; Injury date: 04/29/2021; Injury details: Patient fell and hit head. Not on blood thinners TECHNIQUE: Imaging protocol: Computed tomography of the head without contrast. Radiation optimization: All CT scans at this facility use at least one of these dose optimization techniques: automated exposure control; mA and/or kV adjustment per patient size (includes targeted exams where dose is matched to clinical indication); or iterative reconstruction. COMPARISON: MR Brain wo Cont 08/16/2018 2:06 PM FINDINGS: Brain: Acute appearing subdural hemorrhage along right frontotemporoparietal region. This has a maximum width of approximately 7 mm in transverse dimension and extends from anterior temporal fossa to mid parietal convexity. There is also hemorrhage in the falx cerebri which is of slightly heterogeneous density that could be acute and subacute hemorrhage. This has a maximum width of approximately 9 mm. There is a focal parenchymal hemorrhage in right posterior lobe near the convexity that has a rounded appearance and measures approximately 1.3 cm in diameter. There also small areas parenchymal hemorrhage near the midline in the right frontal lobe anteriorly (see series 3, images 27- 30) and in the fornix. Subarachnoid hemorrhage anterior to the left cerebellum, extending along the left side of the prepontine cistern, into the interpeduncular cistern, and in the 4th ventricle. There is no midline shift but there is slight effacement of the left lateral aperture of the 4th ventricle. Mild diffuse parenchymal atrophy. Cerebral ventricles: Subarachnoid hemorrhage anterior to the left cerebellum, extending along the left side of the josiane into the interpeduncular cistern, and in the 4th ventricle. Slight effacement left lateral aperture 4th ventricle. Bones/joints: No fracture is identified but there is motion artifact that could obscure a subtle fracture, especially at the skull base. Paranasal sinuses: Visualized sinuses are unremarkable. No fluid levels. Mastoid air cells: Visualized mastoid air cells are well aerated. Soft tissues: Large scalp hematoma over the right posterior convexity in the measuring approximately 5 cm by 2 cm by 5.2 cm in transverse, AP, and craniocaudad dimension. IMPRESSION: 1. Acute right frontotemporal parietal and falcine subdural hematoma without midline shift. 2. Areas of acute parenchymal hemorrhage right frontal lobe. 3. Areas of acute subarachnoid hemorrhage in the interpeduncular cistern, anterior to the left cerebellum, and in the 4th ventricle with slight effacement of the left lateral aperture of the 4th ventricle. 4. Large right superior parietal scalp hematoma THIS REPORT CONTAINS FINDINGS THAT MAY BE CRITICAL TO PATIENT CARE. The findings were verbally communicated via telephone conference with RIP STAPLETON at 2:55 PM GREEN CH[employer] WORKER on 04/29/2020. The findings were acknowledged and understood. Thank you for allowing us to participate in the care of your patient. Dictated and Authenticated by: Arlette Ballard MD 04/29/2020 3:02 PM Central Time ([place] & [place]) [facility]
[2020-04-29] MEDS ORDERED: Labetalol 100 MG/20 ML MDV IVPUSH ONE (14:40)
[2020-04-29 14:55] VITALS: PULSE 80
[2020-04-29 15:06] VITALS: BP 165/86
== END 2020-04-29 15:00 ==
LOC: JD.ED 12:55
DX: S06.5X9A Traumatic subdural hemorrhage with loss of consciousness of unspecified duration, initial encounter (principal); S06.6X9A Traumatic subarachnoid hemorrhage with loss of consciousness of unspecified duration, initial encounter; M25.552 Pain in left hip; K21.9 Gastro-esophageal reflux disease without esophagitis; I12.9 Hypertensive chronic kidney disease with stage 1 through stage 4 chronic kidney disease, or unspecified chronic kidney disease; E11.22 Type 2 diabetes mellitus with diabetic chronic kidney disease; N18.9 Chronic kidney disease, unspecified; F32.9 Major depressive disorder, single episode, unspecified; Z90.49 Acquired absence of other specified parts of digestive tract; Z90.710 Acquired absence of both cervix and uterus; Z88.8 Allergy status to other drugs, medicaments and biological substances; Z79.82 Long term (current) use of aspirin; Z79.899 Other long term (current) drug therapy; Z87.891 Personal history of nicotine dependence; W01.0XXA Fall on same level from slipping, tripping and stumbling without subsequent striking against object, initial encounter
CPT/HCPCS: 36415; 70450; 80053; 85025; 85610; 85730; 96374; 99285; J3490; U0002